=== PATIENT | female | born 1960 | race American Indian/Alaskan Native ===

== ENCOUNTER 2018-04-28 22:41 | Emergency (ER) | payer OTHER ==
[2018-04-28 22:55] VITALS: BP 136/84
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
[2018-04-29] MEDS ORDERED: ULTRAM PO ONE (02:36)
[2018-04-29] MEDS ORDERED: ULTRAM ONE (02:40)
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
== END 2018-04-29 05:10 | disposition home or self-care (01) ==
LOC: ED 22:41
DX: S16.1XXA Strain of muscle, fascia and tendon at neck level, initial encounter (principal); S39.012A Strain of muscle, fascia and tendon of lower back, initial encounter; I10 Essential (primary) hypertension; Z88.8 Allergy status to other drugs, medicaments and biological substances; V87.7XXA Person injured in collision between other specified motor vehicles (traffic), initial encounter; Y93.89 Activity, other specified; Y92.89 Other specified places as the place of occurrence of the external cause; Y99.8 Other external cause status
CPT/HCPCS: 72040; 72100; 99283